=== PATIENT | female | born 1985 | race African-American/Black ===

== ENCOUNTER 2019-05-16 12:45 | Emergency (ER) | payer BC ==
[~2019-05-16] VITALS: Ht 172.7 cm; Wt 92.5 kg
[2019-05-16 12:50] VITALS: Ht 172.7 cm; Wt 92.5 kg
[2019-05-16 13:58] LABS: BASOPHIL % 0.6 % (0-2)
[2019-05-16 13:59] LABS: PLATELET COUNT 434 x10^3mcL (130-400); RED CELL DISTRIBUTION WIDTH 14.7 % (11.5-14.5)
[2019-05-16 14:22] LABS: CALCIUM 8.8 mg/dL (8.5-10.1); CARBON DIOXIDE 28.7 mmol/L (21-32); CHLORIDE SERUM 104 mmol/L (98-107); CREATININE SERUM 0.9 mg/dL (0.6-1.0); GFR1 > 60 mL/min; GLUCOSE SERUM 93 mg/dL (74-106); POTASSIUM SERUM 3.9 mmol/L (3.5-5.1); SODIUM SERUM 140 mmol/L (136-145)
[2019-05-16 14:28] LABS: ALBUMIN 3.5 g/dL (3.4-5.0); ALKALINE PHOSPHATASE 62 U/L (46-116); ALT/SGPT 18 U/L (14-59); AST/SGOT 10 U/L (15-37); BILIRUBIN TOTAL 0.2 mg/dL (0.20-1.00); TOTAL PROTEIN, SERUM 7.3 g/dL (6.4-8.2)
[2019-05-16 16:09] VITALS: BP 122/77
== END 2019-05-16 16:09 | disposition home or self-care (01) ==
LOC: ED 12:45
PROVIDERS: Emergency Medicine
DX: R07.89 Other chest pain (principal); R20.0 Anesthesia of skin
CPT/HCPCS: 36415; 85378; J1885; Q0092